=== PATIENT | female | born 1960 | race African-American/Black ===

== ENCOUNTER 2021-06-01 00:56 | Inpatient (IN) | payer OTHER ==
[~2021-06-01] VITALS: Ht 165.1 cm; Wt 169.8 kg
[2021-06-01] MEDS ORDERED: NITROGLYCERIN 0.4MG TABLET SL SL PRN (01:15)
[2021-06-01] MEDS ORDERED: MORPHINE SULFATE 4 MG/ML CPJ (NOT FOR IM USE) IV STA (01:15)
[2021-06-01] MEDS ORDERED: ONDANSETRON HCL 4MG/2ML INJ IV STA (01:15)
[2021-06-01 01:35] LABS: BASOPHILS % 0.3 % (0.0-2.0); EOSINOPHILS % 1.3 % (0.0-5.0); HEMATOCRIT. 35.5 % (36.0-48.0); HEMOGLOBIN. 12.1 g/dL (12.0-16.0); LYMPHOCYTES % 15.7 % (20.0-50.0); MEAN CORPUSCULAR HEMOGLOBIN 30.6 pg (28.0-32.0); MEAN CORPUSCULAR VOLUME 90.3 fL (81.0-99.0); MONOCYTES % 5.9 % (2.0-8.0); NEUTROPHILS % 76.8 % (40.0-76.0); PLATELET 219 x1000/uL (130-400); RED BLOOD CELL COUNT 3.94 mill/uL (4.2-5.4); RED CELL DISTRIBUTION WIDTH 13.5 % (11.6-14.6)
[2021-06-01 01:47] LABS: CHLORIDE 101 mEq/L (98-107)
[2021-06-01 01:51] LABS: ETHANOL BLOOD < 10 mg/dL
[2021-06-01] MEDS ORDERED: CALCIUM GLUCONATE 100MG/ML 10ML VIAL IV NR (02:45)
[2021-06-01] MEDS ORDERED: ENOXAPARIN 150MG/ML SYR SUBCUT SCH (04:30)
[2021-06-01] MEDS ORDERED: POTASSIUM CHLORIDE 20MEQ TABLET SR PO NR (04:30)
[2021-06-01] MEDS ORDERED: MORPHINE SULFATE 4 MG/ML CPJ (NOT FOR IM USE) IV ONE (04:30)
[2021-06-01 04:43] LABS: PROTHROMBIN TIME 10.3 sec (9.6-11.0)
[2021-06-01] MEDS ORDERED: NALOXONE HCL 0.4MG/ML VIAL IV PRN (07:15)
[2021-06-01] MEDS ORDERED: MORPHINE SULFATE 2 MG/ML CPJ (NOT FOR IM USE) IV PRN (07:15)
[2021-06-01 08:29] LABS: CLARITY URINE CLOUDY (CLEAR); COLOR URINE YELLOW (YELLOW); KETONES URINE TRACE (NEGATIVE); LEUKOCYTE ESTERASE URINE NEGATIVE (NEGATIVE); NITRITE URINE NEGATIVE (NEGATIVE); OCCULT BLOOD URINE NEGATIVE (NEGATIVE); PROTEIN URINE NEGATIVE (NEGATIVE); SPECIFIC GRAVITY URINE 1.025 (1.005-1.030)
[2021-06-01 08:44] LABS: *BENZODIAZEPINES SCREEN URINE NEGATIVE (NEGATIVE); *COCAINE SCREEN URINE NEGATIVE (NEGATIVE)
[2021-06-01 08:45] LABS: *AMPHETAMINES SCREEN URINE NEGATIVE (NEGATIVE); *BARBITURATES SCREEN URINE NEGATIVE (NEGATIVE); CANNABINOID URINE SCREEN NEGATIVE (NEGATIVE); METHADONE URINE SCREEN NEGATIVE (NEGATIVE); OPIATES URINE SCREEN PRESUMTIVE POSITIVE (NEGATIVE); PHENCYCLIDINE URINE SCREEN NEGATIVE (NEGATIVE)
[2021-06-01 15:47] VITALS: BP 109/50
[2021-06-01 16:00] VITALS: BP 109/50
[2021-06-01] MEDS ORDERED: GLYB1.253 MT (16:01)
[2021-06-01] MEDS ORDERED: METF-414 MT (16:01)
[2021-06-01] MEDS ORDERED: DEXTROSE 50% WATER 50ML SYRINGE IV PRN (16:30)
[2021-06-01] MEDS ORDERED: ONDANSETRON HCL 4MG/2ML INJ IV PRN (16:30)
[2021-06-01] MEDS ORDERED: ACETAMINOPHEN 325MG TABLET PO PRN (16:30)
[2021-06-01] MEDS: INSULIN LISPRO 100 UNITS/ML SUBCUT SCH ×2 (17:10→20:36)
[2021-06-01] MEDS: BLOOD SUGAR DIAGNOSTIC STRIP TEST SCH ×2 (17:29→20:36)
[2021-06-01] MEDS: KETOROLAC 15MG/ML VIAL IV PRN (18:35)
[2021-06-01 20:00] VITALS: BP 99/53
[2021-06-02] VITALS: BP 95/54
[2021-06-02] MEDS: KETOROLAC 15MG/ML VIAL IV PRN (00:13)
[2021-06-02 04:00] VITALS: BP 107/60
[2021-06-02] MEDS: BLOOD SUGAR DIAGNOSTIC STRIP TEST SCH ×3 (06:31→16:50)
[2021-06-02] MEDS: INSULIN LISPRO 100 UNITS/ML SUBCUT SCH ×3 (06:31→16:50)
[2021-06-02 08:00] VITALS: BP 91/51
[2021-06-02] MEDS ORDERED: ASPIRIN 81MG TABLET PO SCH (09:00)
[2021-06-02 12:00] VITALS: BP 109/46
[2021-06-02 13:10] VITALS: BP 109/50
== END 2021-06-02 17:20 | disposition home or self-care (01) | DRG 203 ==
LOC: ER 01:14 → ENRESERV 14:59 → 7EST 15:07
PROVIDERS: ADMIT Internal Medicine; ATTEND Internal Medicine
DX: M94.0 Chondrocostal junction syndrome [Tietze] (principal); E44.1 Mild protein-calorie malnutrition; I25.2 Old myocardial infarction; Z68.44 Body mass index [BMI] 60.0-69.9, adult; E11.9 Type 2 diabetes mellitus without complications; I10 Essential (primary) hypertension; E87.6 Hypokalemia; E78.5 Hyperlipidemia, unspecified; E66.01 Morbid (severe) obesity due to excess calories; J45.909 Unspecified asthma, uncomplicated; Z86.73 Personal history of transient ischemic attack (TIA), and cerebral infarction without residual deficits; Z71.3 Dietary counseling and surveillance
CPT/HCPCS: 36415; 71045; 80053; 80061; 80305; 80320; 81003; 82962; 83880; 84443; 84484; 85025; 93005; 93306; 99285; J0610; J1650; J1815; J1885; J2270; J2405; G0480

== ENCOUNTER 2021-12-07 00:29 | Emergency (ER) | payer OTHER ==
[~2021-12-07] VITALS: Ht 172.7 cm; Wt 100.0 kg
[~2021-12-07 00:29] MED LIST: GLYB1.253 MT; METF-414 MT
[2021-12-07] MEDS ORDERED: ACETAMINOPHEN 500MG TABLET PO ONE (01:30)
[2021-12-07] MEDS ORDERED: ALBUTEROL (0.5%) 2.5MG/0.5ML NEB HHN ONE (04:00)
[2021-12-07] MEDS ORDERED: ACETAMINOPHEN 325MG TABLET PO ONE (11:30)
[2021-12-07 13:02] VITALS: BP 107/47
== END 2021-12-07 13:03 | disposition home or self-care (01) ==
LOC: ER 00:29
DX: E11.649 Type 2 diabetes mellitus with hypoglycemia without coma (principal); R06.02 Shortness of breath; I10 Essential (primary) hypertension
CPT/HCPCS: 82962; 93005; 94640; 99283; Z7610